=== PATIENT | male | born 1985 | race Asian ===

== ENCOUNTER 2019-02-11 16:12 | Emergency (ER) | payer MEDICAID, OTHER ==
[~2019-02-11] VITALS: Ht 162.6 cm; Wt 59.1 kg
[2019-02-11 16:22] VITALS: BP 101/72
[2019-02-11] MEDS ORDERED: METH-360 PO (16:54)
[2019-02-11] MEDS ORDERED: diazepam 5mg tablet PO ONE (16:55)
[2019-02-11] MEDS ORDERED: ketorolac tromethamine 15mg/ml inj. IM ONE (16:55)
[2019-02-11] MEDS ORDERED: IBUP-1985 PO (16:56)
== END 2019-02-11 17:25 | disposition home or self-care (01) ==
LOC: ER 16:12
DX: S29.012A Strain of muscle and tendon of back wall of thorax, initial encounter (principal); Z79.899 Other long term (current) drug therapy; Z60.2 Problems related to living alone; W10.8XXA Fall (on) (from) other stairs and steps, initial encounter; Y93.89 Activity, other specified; Y92.89 Other specified places as the place of occurrence of the external cause; Y99.8 Other external cause status
CPT/HCPCS: 96372; 99283; J1885